=== PATIENT | female | born 1980 | race Caucasian/White ===

== ENCOUNTER 2021-12-29 08:10 | Emergency (ER) | payer OTHER, SELFPAY ==
[2021-12-29 08:19] VITALS: BP 136/83; PULSE 74; RESP 16; TEMP 36.6; O2SAT 98; BMI 35.2
--- NOTE | 2021-12-29 08:40 | ED.BACK ---
HPI - Back Pain/Injury General Chief Complaint: Back Pain/Injury Stated Complaint: Lower back pain Time Seen by Provider: 12/29/21 08:24 Source: patient Mode of arrival: ambulatory Limitations: no limitations History of Present Illness HPI Narrative: 41-year-old female who presents emergency department for evaluation of right lower back pain. 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 She states she was picking the child up out of the car seat approximately 1 week prior when she felt a pop in her right lower back. She states she developed immediate pain in her back and the pain did radiate down her right leg. She states the pain is been constant, sharp and 8/10 at its worst. She states that she does have a numbness that radiates down her right leg to her right foot but denies any weakness of the right leg her foot. She has not had any loss of bowel or bladder control. She states that her pain is worse when she goes from a sitting to standing position worse if she twists her lower back. Patient has been taking Tylenol p.m. and Motrin 800 mg with no relief for pain. She is also use an [id number] lidocaine patch with no relief for pain. Patient states she had a similar back injury 15 years prior that resolved with medications. She denied fever, chills, fatigue, loss of appetite, chest pain, shortness of breath, injection drug use. 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 Past surgical history: Right carpal tunnel release. Social history: She denies tobacco, alcohol and drug use. Social History Social History Advance Directives: No Advance Directives Information Provided: No Physical Exam Vital Signs: Vital Signs: Last Vital Signs Temp 98 F 12/29/21 08:19 Pulse 74 12/29/21 08:19 Resp 16 12/29/21 08:19 BP 136/83 12/29/21 08:19 Pulse Ox 98 12/29/21 08:19 O2 Del Method 12/29/21 08:19 BMI result Body Mass Index 35.2 Const: General: cooperative and no acute distress Orientation/consciousness: oriented to person and oriented to place Limitations: no limitations HEENT: Head: Yes normal to inspection, Yes normocephalic and Yes atraumatic Ears: external ears normal General nose exam: Normal external nose present Face and sinus: Yes normal facial exam Mouth: Normal oral and palatal mucosa present Throat: Yes posterior oropharynx normal Eyes: General: appearance normal, both eyes and all related structures Pupils: Equal, round and reactive pupils present Neck: Neck: Yes normal visual inspection, Yes no lymphadenopathy, Yes trachea midline and Yes supple Chest: Chest palpation & inspection: normal inspection of the chest and normal palpation of entire chest wall Resp: Effort & Inspection: normal respiratory effort and able to speak in complete sentences Auscultation: clear to auscultation bilaterally Cardio: Rate: regular rate Rhythm: regular rhythm Heart sounds: S1 normal heart sound present, S2 normal heart sound present and no murmurs GI: Inspection: Yes normal to inspection Palpation (GI): Soft to palpation, nontender and no guarding Auscultation: normal bowel sounds Back/Spine/Pelvis: Other: Tender right SI joint and lumbar 6 paraspinal muscles on the right, spasm of these muscles, negative straight leg raises bilaterally Skin: General skin exam: no rashes or lesions noted Neuro: General: oriented to person and oriented to place Cranial nerves: Yes CN's II-XII intact bilaterally and Yes Equal, round and reactive pupils present Cognition (Neuro): normal cognition Motor exam (neuro): 5/5 motor strength present throughout Extrem: General: Yes normal to inspection Psych: Appearance: grossly normal Speech and movement: Normal speech and movement present Affect: normal affect Attitude: cooperative Thought process: Normal thought process present Thought content: Normal thought content present Course Course Course Narrative: 41-year-old female who presents emergency department for evaluation of right lower back pain with numbness to the right leg which started 1 week prior after she lifted a baby out of the car seat. Physical examination did reveal right SI joint tenderness with pain with palpation of the right paraspinal muscles in the lumbar sacral area. Her neurologic exam was nonfocal. She is able to stand and walk without any difficulty. She has had no loss of bowel or bladder control. Patient's presentation is consistent with SI joint sprain with spasm of the paraspinal muscles sprain with radiculopathy. Discharge Plan Discharge Clinical Impression: Lumbar radiculopathy Strain of lumbar region Qualifiers: Encounter type: initial encounter Qualified Code(s): S39.012A - Strain of muscle, fascia and tendon of lower back, initial encounter Sprain of sacroiliac joint Qualifiers: Encounter type: initial encounter Qualified Code(s): S33.6XXA - Sprain of sacroiliac joint, initial encounter Patient Disposition: Home, Self-Care Instructions: Lumbar Radiculopathy (ED), Sacroiliitis (ED) Additional Instructions: Your symptoms are consistent with a sprain of the sacroiliac joint and inflammation of the nerves in the lower back causing the numbness in your leg. Take prednisone 20 mg pills, 3 pills once a day for 7 days. While you are taking prednisone, do not take any NSAIDs (Motrin, Advil, ibuprofen, Aleve, naproxen). Take Tylenol (acetaminophen) 500 mg pills, 2 pills every 6 hours as needed for pain. Take Flexeril (cyclobenzaprine) 10 mg pills, 1 pill every 8 hours as needed for pain or muscle spasm. This is a prescription medication. This medication will make you sleepy, therefore do not drive or work while taking this medication. Apply ice for 15 minutes to the area that hurts on your back, then apply a heating a pad on low for 15 minutes. Do this 4-6 times a day to help reduce the pain in your back. Continue with normal activities as tolerated since staying in bed and not moving around will make your pain worse. You can also try over the counter lidocaine patches as directed on the box to help with the pain. Please return to the Emergency Department or see your doctor immediately if your symptoms get worse or if you develop any new symptoms that are concerning you. Follow up with your doctor in 2 day. Please read the other printed discharge instructions on sacroiliitis and lumbar radiculopathy Prescriptions: New cyclobenzaprine 10 mg tablet 10 mg PO TID PRN (Reason: muscle pain or spasm) Qty: 20 0RF prednisone 20 mg tablet 60 mg PO DAILY 7 Days Qty: 21 0RF
== END 2021-12-29 09:06 | disposition home or self-care (01) ==
PROVIDERS: Emergency Provider Emergency Medicine Emergency Medical Services; PCP Internal Medicine
DX: M54.16 Radiculopathy, lumbar region (principal); M54.50 Low back pain, unspecified
CPT/HCPCS: 99283

== ENCOUNTER 2023-06-28 08:53 | Emergency (ER) | payer OTHER, SELFPAY ==
--- NOTE | ~2023-06-28 | XR_ITS ---
EXAMINATION: XR CHEST CLINICAL INFORMATION: Cough with chest discomfort COMPARISON: Chest radiograph 05/18/2009, report only TECHNIQUE: 2 views of the chest were obtained. FINDINGS: No significant abnormality is noted involving the heart, lungs, mediastinum, bony thorax or soft tissues. XR/XR chest 2V IMPRESSION: Unremarkable examination.
[2023-06-28 09:13] VITALS: BP 127/85; PULSE 80; RESP 16; TEMP 36.8; O2SAT 100; BMI 35.8
--- NOTE | 2023-06-28 09:25 | ED_ITS ---
HPI - URI/Sore Throat General Chief Complaint: Upper Respiratory Symptoms Stated Complaint: Cough Chest Discomfort Time Seen by Provider: 06/28/23 09:24 Source: patient, RN notes reviewed and old records reviewed Mode of arrival: ambulatory Limitations: no limitations History of Present Illness HPI Narrative: 43-year-old female with no significant past medical history presents to the ED today for evaluation of cough that began 6 days ago. Admits it has progressively worsened. Denies sputum production. Endorses associated chest discomfort after coughing for a while along with hoarse voice x3 days which has since resolved. Denies known sick contacts however does work at a [employer]. Admits that she has been taking DayQuil over the past few days without relief. Last dose was yesterday. Denies fever, chills, sore throat, ear pain, chest pain, shortness of breath, wheezing, dyspnea, nausea or vomiting, abdominal pain, calf pain/swelling. Denies recent travel or long car rides. Denies history of asthma. Related Data Previous Rx's ?Medication ?Instructions ?Recorded cyclobenzaprine 10 mg tablet 10 mg PO TID PRN muscle pain or 12/29/21 spasm #20 tabs prednisone 20 mg tablet 60 mg (3 x 20 mg) PO DAILY 7 days 12/29/21 #21 tabs azithromycin 250 mg tablet See Rx Instructions PO .COMPLEX #6 06/28/23 (Zithromax Z-Slim) tabs benzonatate 100 mg capsule 100 mg PO BID PRN cough #20 caps 06/28/23 prednisone 20 mg tablet 40 mg (2 x 20 mg) PO DAILY 5 days 06/28/23 #10 tabs Allergies Allergy/AdvReac Type Severity Reaction Status Date / Time No Known Allergies Allergy Verified 06/28/23 09:17 Review of Systems Review of Systems: Constitutional: No fever, chills, fatigue, night sweats, weight changes ENT/Mouth: No ear pain, hearing loss, nasal congestion, sinus pain, rhinorrhea, sore throat Eyes: No eye pain, swelling, redness, vision changes, discharge Cardio: No chest pain, palpitations, TANG, orthopnea, peripheral edema Pulm: No SOB, sputum, wheezing, dyspnea, hemoptysis, +cough GI: No nausea, vomiting, hematemesis, abdominal pain, diarrhea, constipation, hematochezia, melena : No irregular bleeding, dysuria, frequency, urgency, hesitancy, hematuria, flank pain, urinary flow changes, urinary incontinence or retention MSK: No back pain, neck pain, joint pain, myalgias Skin: No lesions, rashes Neuro: No weakness, numbness, paresthesias, LOC, dizziness, headache Psych: No anxiety/panic, depression, SI/HI, AH/VH All other systems reviewed and are negative. [facility] Past Medical History Attestation statement: The following information was validated with the patient. Source: old records reviewed and nursing notes reviewed Social History Social History Advance Directives: No Physical Exam Vital Signs: Vital Signs: Last Vital Signs Temp 98.3 F 06/28/23 09:13 Pulse 80 06/28/23 09:13 Resp 16 06/28/23 09:13 BP 127/85 06/28/23 09:13 Pulse Ox 100 06/28/23 09:13 O2 Del Method Room Air 06/28/23 09:13 BMI result Body Mass Index 35.8 Vital signs stable, afebrile. Not hypoxic or tachycardic. Const: General: cooperative, healthy appearing, comfortable and no acute distress Orientation/consciousness: patient oriented x3 Limitations: no limitations HEENT: Other: + posterior oropharynx without erythema or edema. No tonsillar exudates or peritonsillar masses. Uvula midline. Controlling secretions and speaking in complete sentences. Head: Yes normal to inspection, Yes No palpable skull fracture present, Yes normocephalic and Yes atraumatic Ears: hearing grossly normal bilaterally, external ears normal, TM's normal bilaterally, EAC's normal, mastoids normal and no periauricular adenopathy Eyes: General: appearance normal, both eyes and all related structures Conjunctivae: conjunctivae normal Sclerae: sclerae normal Pupils: Equal, round and reactive pupils present Neck: Neck: Yes normal visual inspection, Yes full ROM and Yes no lymphadenopathy Resp: Effort & Inspection: normal respiratory effort, able to speak in complete sentences and Actively coughing Auscultation: clear to auscultation bilaterally Cardio: Rate: regular rate Rhythm: regular rhythm GI: Inspection: Yes normal to inspection Palpation (GI): Soft to palpation and nontender Skin: General skin exam: no rashes or lesions noted Neuro: General: patient oriented x3 Cranial nerves: Yes Equal, round and reactive pupils present Course Course Course Narrative: 1054-- patient has tested negative for COVID, flu, RSV. Chest x-ray unremarkable. Concern for acute bronchitis. Patient received Tessalon Perles and Decadron in ED today. Will send prednisone, Tessalon Perles and Z-Slim to pharmacy. Patient has remained stable throughout ED visit today. Discussed worrisome signs and symptoms and when to return to the ED. All questions answered at this time. Patient is agreeable with disposition and stable for discharge. Medications Administered Discontinued Medications Generic Name Dose Route Start Last Admin Trade Name Freq PRN Reason Stop Dose Admin Benzonatate 200 mg 06/28/23 09:52 06/28/23 10:28 Benzonatate 100 Mg Capsule PO 06/28/23 09:53 200 mg ONCE ONE Administration Dexamethasone Sodium Phosphate 10 mg 06/28/23 09:55 06/28/23 10:28 Dexamethasone Sod Phosphate 10 Mg/Ml Vial IVPUSH 06/28/23 09:56 10 mg ONCE ONE Administration Medical Decision Making Medical Decision Making [facility] Narrative: 43-year-old female with no significant past medical history presents to the ED today for evaluation of cough that began 6 days ago. Vital signs stable. Afebrile. Not hypoxic or tachycardic. Posterior oropharynx WNL. Lungs are CTA bilaterally. No increased effort of breathing. Actively coughing on exam. No calf tenderness bilaterally. Differential diagnosis includes viral syndrome, bronchitis, laryngitis, pneumonia. Low suspicion for pulmonary embolism, effusion, ACS, arrhythmia. Plan for viral serology, chest x-ray and re-evaluation. Differential Diagnosis Differential Diagnoses: The differential diagnosis associated with the presentation includes As above Admission/Observation Not indicated Lab Data [facility] Lab Attestation statement: I reviewed the patient's lab results. As above Labs: Lab Results 06/28/23 Range/Units 09:47 Influenza Type A (PCR) NEGATIVE (Negative) Influenza Type B (PCR) NEGATIVE (Negative) RSV RNA Qual (PCR) NEGATIVE (Negative) SARS-CoV-2 RNA (RT-PCR) NEGATIVE (Negative) Independent Interpretation I performed an independent interpretation of an: Plain X-Ray Interpretation: Chest x-ray does not reveal infiltrate or consolidation, agree with radiologist's interpretation. Radiology Impression Discussion of test interpretation with radiology: I have reviewed the radiologist's reading. Radiologist Impression: EXAMINATION: XR CHEST CLINICAL INFORMATION: Cough with chest discomfort COMPARISON: Chest radiograph 05/18/2009, report only TECHNIQUE: 2 views of the chest were obtained. FINDINGS: No significant abnormality is noted involving the heart, lungs, mediastinum, bony thorax or soft tissues. XR/XR chest 2V IMPRESSION: Unremarkable examination. External Record Review External record reviewed: Inpatient record Prescription Management I considered prescription management with: Antibiotic (Azithromycin) and Other (Tessalon Perles, prednisone) Social Determinants Patient?s care significantly limited by Social Determinants of Health including: Other Social Determinant of Health Discharge Plan Discharge Clinical Impression: Acute bronchitis Patient Disposition: Home, Self-Care Instructions: Acute Bronchitis (ED), Wheezing (ED) Additional Instructions: You tested negative for COVID, flu, RSV. Your chest x-ray does not show signs of pneumonia. You likely have acute bronchitis which is inflammation/ infection of the airways. Prednisone as a steroid that has been sent to your pharmacy. Take this as direc francie over the next 5 days, beginning tomorrow. Tessalon Perles have been sent to your pharmacy to help with cough. Azithromycin (zpak) is an antibiotic that has been sent to your pharmacy for you to take over the next 5 days. Take as prescribed. Do not miss any doses or stop taking this early as this may cause infection to persist or worsen. Take 2 tablets today and then 1 tablet a day for the next 4 days. Follow-up with PCP as needed. Return with new or worsening symptoms. In the case of an emergency call 911. Prescriptions: New prednisone 20 mg tablet 40 mg PO DAILY 5 Days Qty: 10 0RF benzonatate 100 mg capsule 100 mg PO BID PRN (Reason: cough) Qty: 20 0RF azithromycin [Zithromax Z-Slim] 250 mg tablet See Rx Instructions .ROUTE .COMPLEX Qty: 6 0RF Rx Instructions: For 250 mg dose pack: take 500 mg today (day 1), then 250 mg for 4 days (days 2-5) No Action cyclobenzaprine 10 mg tablet 10 mg PO TID PRN (Reason: muscle pain or spasm) Qty: 20 0RF prednisone 20 mg tablet 60 mg PO DAILY 7 Days Qty: 21 0RF Referrals: Valerie Cota MD [Primary Care Provider] - Stand Alone Forms: Work/School Release Print Language: Panamanian
[2023-06-28] MEDS: dexAMETHasone sod phosphate 10 MG/ML VIAL IVPUSH (10:28)
[2023-06-28] MEDS: Benzonatate 100 MG CAPSULE 200 MG PO (10:28)
--- NOTE | 2023-06-28 10:28 | PC.NURSE ---
pt medicated per order, per request of provider steroids were to be given PO in juice.
[2023-06-28 10:31] LABS: Influenza A PCR NEGATIVE (Negative); Influenza B PCR NEGATIVE (Negative); Resp Syncy Virus RNA Qual PCR NEGATIVE (Negative); SARS COV2 PCR INHOUSE NEGATIVE (Negative)
[2023-06-28 11:11] VITALS: BP 121/82; PULSE 83; RESP 16; TEMP 36.7; O2SAT 100
== END 2023-06-28 11:11 | disposition home or self-care (01) ==
PROVIDERS: Emergency Provider Emergency Medicine; PCP Internal Medicine
DX: J20.9 Acute bronchitis, unspecified (principal)
CPT/HCPCS: 0241U; 71046; 99282; 99283; J1100

== ENCOUNTER 2023-11-17 15:04 | Emergency (ER) | payer OTHER, SELFPAY ==
--- NOTE | ~2023-11-17 | CT_ITS ---
EXAMINATION: CT ABDOMEN AND PELVIS WITHOUT CONTRAST CLINICAL INFORMATION: Left lower quadrant pain and tenderness. COMPARISON: None available. TECHNIQUE: Multidetector volumetric imaging was performed from the superior aspect of the liver through the pubic symphysis. Sagittal and coronal reformatted images were obtained on the technologist's workstation. This CT examination was performed using dose optimization techniques as appropriate, variously including the following: *Automated exposure control *Adjustment of mA and/or kV according to patient size (this includes techniques or standardized protocols for targeted exams where dose is matched to indication/reason for exam; i.e. extremities or head) *Use of iterative reconstruction technique DLP: 792 mGy-cm FINDINGS: LUNG BASES: The visualized lung bases are unremarkable. LIVER, GALLBLADDER, AND BILIARY TREE: The liver is normal in size, shape, and attenuation. No focal hepatic lesion or biliary ductal dilatation is present. The gallbladder is unremarkable with no evidence of radiopaque gallstones, gallbladder wall thickening, or obvious pericholecystic inflammatory changes. PANCREAS: Unremarkable. SPLEEN: Unremarkable. ADRENAL GLANDS: Unremarkable. KIDNEYS AND URETERS: The kidneys are normal in size, shape, and attenuation. No hydronephrosis, hydroureter, or calculi seen. No perinephric stranding. BLADDER: Unremarkable. GASTROINTESTINAL TRACT: The small and large bowel are normal in caliber. There is a moderate volume of stool throughout the colon. There is no pericolonic inflammatory stranding. No free fluid throughout the abdomen. The appendix is unremarkable. ABDOMINAL WALL: No significant hernia is appreciated. LYMPH NODES: No lymphadenopathy. VASCULAR: Unremarkable. PELVIC VISCERA: The uterus is enlarged and lobular. It contains several fibroids. There are bilateral Essure devices. The precise location of the left-sided device is uncertain. Correlation with ultrasound is recommended. OSSEOUS STRUCTURES: Unremarkable. CT/CT abdomen pelvis wo IV con IMPRESSION: No acute intra-abdominal/intrapelvic abnormality. Moderate stool burden The uterus is enlarged and lobular. It contains several fibroids. There are bilateral Essure devices. The precise location of the left-sided device is uncertain. Correlation with ultrasound is recommended. Fleischner guidelines were followed. This critical result was discussed with DEVAN Saleem at 6:59 PM on 11/17/2023 and it was ascertained that the content and urgency of the report was understood at the time of direct communication. Electronically signed by: Caio Carpenter DO 11/17/2023 07:00 PM EDT RP
[2023-11-17 15:07] VITALS: BP 156/77; PULSE 75; RESP 16; TEMP 36.9; O2SAT 98; BMI 35.2
--- NOTE | 2023-11-17 15:07 | ED_ITS ---
HPI - Abdominal Pain General Chief Complaint: Abdominal Pain Stated Complaint: left side abd pain Time Seen by Provider: 11/17/23 17:42 Source: patient Limitations: no limitations History of Present Illness ED Provider: Luz Bryson PA-C HPI narrative: 43-year-old female with history of chronic constipation presents with left lower quadrant discomfort x5 days. Patient states she feels uncomfortable, her pain is minimal, but has been constant. Denies nausea vomiting or diarrhea. Patient states her last bowel movement was 3 days ago, however it was minimal with firm stool. Denies abdominal distention, or inability to pass flatus. Denies dysuria, hematuria, history of kidney stones. Denies new vaginal discharge. Patient does not have a history of ovarian cysts. Related Data Previous Rx's ?Medication ?Instructions ?Recorded cyclobenzaprine 10 mg tablet 10 mg PO TID PRN muscle pain or 12/29/21 spasm #20 tabs prednisone 20 mg tablet 60 mg (3 x 20 mg) PO DAILY 7 days 12/29/21 #21 tabs azithromycin 250 mg tablet See Rx Instructions PO .COMPLEX #6 06/28/23 (Zithromax Z-Slim) tabs benzonatate 100 mg capsule 100 mg PO BID PRN cough #20 caps 06/28/23 prednisone 20 mg tablet 40 mg (2 x 20 mg) PO DAILY 5 days 06/28/23 #10 tabs Allergies Allergy/AdvReac Type Severity Reaction Status Date / Time No Known Allergies Allergy Verified 11/17/23 15:08 Review of Systems Review of Systems Yes all other systems are reviewed and are negative Constitutional: Denies fever(s) Cardiovascular: Denies chest pain Gastrointestinal: Reports constipation and Denies vomiting Genitourinary: Denies dysuria and Denies vaginal discharge [facility] Past Medical History Attestation statement: The following information was validated with the patient. Social History Social History Advance Directives: No Advance Directives Information Provided: Yes Physical Exam ED Vital Signs: Vital Signs - 24 hr 11/17/23 15:07 11/17/23 17:39 Temperature 98.5 F 98.7 F Pulse Rate 75 66 Respiratory Rate 16 16 Blood Pressure 156/77 H 151/83 H Pulse Oximetry 98 99 Oxygen Delivery Method Room Air Room Air BMI result Body Mass Index 35.2 Const Other: Alert well in appearance Orientation/consciousness: patient oriented x3 Resp Other: Nonlabored respiration Cardio Other: Normal peripheral perfusion GI Other: Abdomen is soft, nondistended, nontender no guarding Skin Other: Warm dry no rash Neuro General: patient oriented x3, no focal motor deficits and CN's II-XI intact bilaterally Psych Other: Cooperative Course Course Course Narrative: This is a Rapid Medical Examination (RME) performed by Katlyn Persaud PA-C in triage. Full HPI, ROS, assessment and treatment plan per primary provider in the Main ED. 43 yo female presents to the ER for evaluation of left sided abdominal pain for the last 6 days that has been worsening. No N/V/D or urinary symptoms. Normal BM this morning, was constipated the last couple days. On exam she appears well, ambulates w/ steady gait into triage. she has a soft abd with LLQ tenderness and some guarding, no rebound. no CVA tenderness on the left side. Plan: labs, UA, CT scan abd/pelvis Medical Decision Making Medical Decision Making MDM Narrative: 43-year-old female with history of chronic constipation presents with left lower quadrant discomfort x5 days. Patient states she feels uncomfortable, her pain is minimal, but has been constant. Denies nausea vomiting or diarrhea. Patient states her last bowel movement was 3 days ago, however it was minimal with firm stool. Denies abdominal distention, or inability to pass flatus. Denies dysuria, hematuria, history of kidney stones. Denies new vaginal discharge. Patient does not have a history of ovarian cysts. Problem: Chronic constipation History: Per patient I have considered the following differential diagnoses: Constipation, bowel obstruction, diverticulitis, renal colic, torsion, TOA Plan: Patient has no related symptoms, and no history of cysts, both TOA in torsion less likely. She has also had symptoms for 5 days that have been minimal. She is very well in appearance. Thought about renal colic, the patient has not had preceding flank pain, she has no hematuria no history of stones, and again she is very comfortable in appearance. Urine sample in process. To note screening labs and a CT scan were obtained from E. Her symptoms are likely secondary to constipation, she does not have any associated obstructive symptoms. I have independently reviewed the following tests: Labs: No leukocytosis, not anemic, urine not infected, viral panel obtained unclear why CT abdomen and pelvis:COMPARISON: None available. TECHNIQUE: Multidetector volumetric imaging was performed from the superior aspect of the liver through the pubic symphysis. Sagittal and coronal reformatted images were obtained on the technologist's workstation. This CT examination was performed using dose optimization techniques as appropriate, variously including the following: *Automated exposure control *Adjustment of mA and/or kV according to patient size (this includes techniques or standardized protocols for targeted exams where dose is matched to indication/reason for exam; i.e. extremities or head) *Use of iterative reconstruction technique DLP: 792 mGy-cm FINDINGS: LUNG BASES: The visualized lung bases are unremarkable. LIVER, GALLBLADDER, AND BILIARY TREE: The liver is normal in size, shape, and attenuation. No focal hepatic lesion or biliary ductal dilatation is present. The gallbladder is unremarkable with no evidence of radiopaque gallstones, gallbladder wall thickening, or obvious pericholecystic inflammatory changes. PANCREAS: Unremarkable. SPLEEN: Unremarkable. ADRENAL GLANDS: Unremarkable. KIDNEYS AND URETERS: The kidneys are normal in size, shape, and attenuation. No hydronephrosis, hydroureter, or calculi seen. No perinephric stranding. BLADDER: Unremarkable. GASTROINTESTINAL TRACT: The small and large bowel are normal in caliber. There is a moderate volume of stool throughout the colon. There is no pericolonic inflammatory stranding. No free fluid throughout the abdomen. The appendix is unremarkable. ABDOMINAL WALL: No significant hernia is appreciated. LYMPH NODES: No lymphadenopathy. VASCULAR: Unremarkable. PELVIC VISCERA: The uterus is enlarged and lobular. It contains several fibroids. There are bilateral Essure devices. The precise location of the left-sided device is uncertain. Correlation with ultrasound is recommended. OSSEOUS STRUCTURES: Unremarkable. CT/CT abdomen pelvis wo IV con IMPRESSION: No acute intra-abdominal/intrapelvic abnormality. Moderate stool burden The uterus is enlarged and lobular. It contains several fibroids. There are bilateral Essure devices. The precise location of the left-sided device is uncertain. Correlation with ultrasound is recommended. Fleischner guidelines were followed. This critical result was discussed with DEVAN Saleem at 6:59 PM on 11/17/2023 and it was ascertained that the content and urgency of the report was understood at the time of direct communication. Electronically signed by: Caio Carpenter DO 11/17/2023 07:00 PM EDT Lab Data 11/17/23 15:25 11/17/23 15:25 Labs: Lab Results 11/17/23 11/17/23 Range/Units 15:25 15:29 WBC 7.8 (4.8-10.8) X10*3/uL RBC 4.83 (4.20-5.50) X10*6/uL Hgb 11.1 L (12.0-16.0) g/dl Hct 34.7 L (37.0-47.0) % MCV 71.8 L (80.0-98.0) fL MCH 23.0 L (27.0-33.0) pg MCHC 32.0 (31.0-35.0) g/dl RDW 15.5 (11.0-16.0) % Plt Count 247 (160-400) X10*3/uL MPV 9.6 (9.4-12.3) fL Immature Gran % (Auto) 0.3 (0.0-0.4) % Neut % (Auto) 59.9 (45-73) % Lymph % (Auto) 26.0 (20-40) % [place] % (Auto) 10.9 (2-11) % Eos % (Auto) 2.4 (0-4) % Baso % (Auto) 0.5 (0-2) % Lymph # (Auto) 2.0 (1.2-4.9) X10*3/uL [place] # (Auto) 0.9 (0.1-1.2) X10*3/uL Eos # (Auto) 0.2 (0.0-0.4) X10*3/uL Baso # (Auto) 0.0 (0.0-0.2) X10*3/uL Abs Immat Gran (auto) 0.02 (0.00-0.03) X10*3/uL Absolute Neuts (auto) 4.7 (2.0-8.3) x10*3/uL Absolute Nucleated RBC 0.000 (0.0-0.012) X10*3/uL Nucleated RBC % (auto) 0.0 (0.0-0.2) /100WBC Sodium 139 (135-145) mmol/L Potassium 3.9 (3.3-5.1) mmol/L Chloride 106 (96-108) mmol/L Carbon Dioxide 24 (22-29) mmol/L Anion Gap 13 (12-20) BUN 16 (9-16) mg/dL Creatinine 0.86 (0.5-1.4) mg/dL Estim Creat Clear Calc 94.2 Estimated GFR > 60 Random Glucose 99 (60-115) mg/dL Calcium 9.0 (8.4-10.2) mg/dL Magnesium 2.1 (1.6-2.6) mg/dL Total Bilirubin 0.2 (0.0-1.0) mg/dL Direct Bilirubin < 0.2 (0.0-0.5) mg/dL AST 32 H (5-31) U/L ALT 33 H (0-31) U/L Alkaline Phosphatase 90 (39-117) U/L Total Protein 7.1 (6.5-8.0) g/dL Albumin 3.9 (3.5-5.0) g/dL Beta HCG, Quant < 2 mIU/mL Urine Color Yellow Urine Appearance Clear Urine pH 5.5 (5.0-9.0) Ur Specific [place] 1.025 (1.005-1.025) Urine Protein Negative (Neg-Trace) mg/dL Urine Glucose (UA) Negative (Negative) mg/dL Urine Ketones Negative (Negative) mg/dL Urine Blood Negative (Negative) Urine Nitrite Negative (Negative) Ur Leukocyte Esterase Negative (Negative) Discharge Plan Discharge Clinical Impression: Constipation Patient Disposition: Home, Self-Care Instructions: Constipation (ED) Additional Instructions: All of your labs including the urinalysis were normal. The CT scan revealed a your constipated. See home care instructions. You should use [id number] Colace, this is a stool softener, 1 to 2 times a day. In addition, you can purchase [id number] MiraLax, mix the powder per package instructions with water, you can consume the solution every hour until you begin having multiple bowel movements. Once you have cleared your stool burden, you should stay on the stool softener daily, you may need to use the MiraLax 1 to 2 times a week to help prevent further episodes of constipation. The radiologist could not see the entire Essure on the left side, the recommendation is for you to have a transvaginal ultrasound scheduled by your OBGYN as an outpatient. Prescriptions: No Action cyclobenzaprine 10 mg tablet 10 mg PO TID PRN (Reason: muscle pain or spasm) Qty: 20 0RF prednisone 20 mg tablet 60 mg PO DAILY 7 Days Qty: 21 0RF prednisone 20 mg tablet 40 mg PO DAILY 5 Days Qty: 10 0RF benzonatate 100 mg capsule 100 mg PO BID PRN (Reason: cough) Qty: 20 0RF azithromycin [Zithromax Z-Slim] 250 mg tablet See Rx Instructions .ROUTE .COMPLEX Qty: 6 0RF Rx Instructions: For 250 mg dose pack: take 500 mg today (day 1), then 250 mg for 4 days (days 2-5) Print Language: Greek
[2023-11-17 15:34] LABS: MANUAL DIFF FLAG NO
[2023-11-17 15:38] LABS: Basophils Percent Auto 0.5 % (0-2); Eosinophils Absolute Auto 0.2 X10*3/uL (0.0-0.4); Eosinophils Percent Auto 2.4 % (0-4); Hematocrit 34.7 % (37.0-47.0); Hemoglobin 11.1 g/dl (12.0-16.0); Imm Gran Abs Auto 0.02 X10*3/uL (0.00-0.03); Imm Gran Pct Auto 0.3 % (0.0-0.4); Mean Corpuscular Volume 71.8 fL (80.0-98.0); Mean Platelet Volume 9.6 fL (9.4-12.3); Monocytes Absolute Auto 0.9 X10*3/uL (0.1-1.2); Monocytes Percent Auto 10.9 % (2-11); Neutrophils Absolute Auto 4.7 x10*3/uL (2.0-8.3); Neutrophils Percent Auto 59.9 % (45-73); Platelet Count 247 X10*3/uL (160-400); Red Blood Count 4.83 X10*6/uL (4.20-5.50); Red Cell Distribution Width 15.5 % (11.0-16.0); White Blood Count 7.8 X10*3/uL (4.8-10.8)
[2023-11-17 15:41] LABS: Appearance Urine Clear; Color Urine Yellow; Glucose Urine UA Negative (Negative); Leukocyte Esterase Urine Negative (Negative); Nitrite Urine Negative (Negative); PH 5.5 (5.0-9.0); Specific Gravity - Urine 1.025 (1.005-1.025); Urine Blood Negative (Negative); Urine Ketones Negative (Negative); Urine Protein Negative (Neg-Trace)
[2023-11-17 15:57] LABS: Alanine Aminotransferase 33 U/L (0-31); Albumin Level 3.9 g/dL (3.5-5.0); Alkaline Phosphatase 90 U/L (39-117); Anion Gap 13 (12-20); Aspartate Amino Transferase 32 U/L (5-31); Bilirubin Direct < 0.2 mg/dL (0.0-0.5); Bilirubin Total 0.2 mg/dL (0.0-1.0); Blood Urea Nitrogen 16 mg/dL (9-16); Carbon Dioxide 24 mmol/L (22-29); Chloride 106 mmol/L (96-108); Creatinine Clr Calc Pharmacy 94.2; Estimated Glomerular Filt Rate > 60; Glucose Random 99 mg/dL (60-115); Magnesium 2.1 mg/dL (1.6-2.6); Potassium 3.9 mmol/L (3.3-5.1); Sodium 139 mmol/L (135-145); Total Protein 7.1 g/dL (6.5-8.0)
[2023-11-17 16:01] LABS: HCG Quantitative < 2 mIU/mL
[2023-11-17 17:39] VITALS: BP 151/83; PULSE 66; RESP 16; TEMP 37.1; O2SAT 99
[2023-11-17 20:13] VITALS: BP 152/81; PULSE 64; RESP 16; TEMP 36.8; O2SAT 99
== END 2023-11-17 20:16 | disposition home or self-care (01) ==
PROVIDERS: Physician Assistant; Emergency Provider Emergency Medicine; PCP Internal Medicine
DX: K59.00 Constipation, unspecified (principal); R10.32 Left lower quadrant pain
CPT/HCPCS: 36415; 74176; 80048; 80076; 81003; 83735; 84702; 85025; 99283; 99284

== ENCOUNTER 2023-11-28 13:22 | Emergency (ER) | payer OTHER, SELFPAY ==
[2023-11-28 13:27] VITALS: BP 147/87; PULSE 101; RESP 20; TEMP 37.1; O2SAT 98; BMI 35.2
--- NOTE | 2023-11-28 13:30 | ED.URI ---
HPI - URI/Sore Throat General Chief Complaint: Recheck/Abnormal Lab/Rx Stated Complaint: COVID Symptoms Time Seen by Provider: 11/28/23 13:29 Source: patient Mode of arrival: ambulatory Limitations: no limitations History of Present Illness ED Provider: tesfaye schwab pa-c HPI Narrative: 43 year old female with no significant pmhx presents to the ED today requesting note for work. She reports nasal congestion and fatigue yesterday, prompting her to test herself for COVID at home. She reports testing positive this morning. 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 Denies fever, chills, sore throat, chest pain, SOB, wheezing, rashes. Related Data Previous Rx's ?Medication ?Instructions ?Recorded cyclobenzaprine 10 mg tablet 10 mg PO TID PRN muscle pain or 12/29/21 spasm #20 tabs prednisone 20 mg tablet 60 mg (3 x 20 mg) PO DAILY 7 days 12/29/21 #21 tabs azithromycin 250 mg tablet See Rx Instructions PO .COMPLEX #6 06/28/23 (Zithromax Z-Slim) tabs benzonatate 100 mg capsule 100 mg PO BID PRN cough #20 caps 06/28/23 prednisone 20 mg tablet 40 mg (2 x 20 mg) PO DAILY 5 days 06/28/23 #10 tabs Allergies Allergy/AdvReac Type Severity Reaction Status Date / Time No Known Allergies Allergy Verified 11/28/23 13:29 Review of Systems Review of Systems: Constitutional: No fever, chills, fatigue, night sweats, weight changes ENT/Mouth: No ear pain, hearing loss, sinus pain, rhinorrhea, +congestion Eyes: No eye pain, swelling, redness, vision changes, discharge Cardio: No chest pain, palpitations, TANG, orthopnea, peripheral edema Pulm: No SOB, cough, sputum, wheezing, dyspnea, hemoptysis GI: No nausea, vomiting, hematemesis, abdominal pain, diarrhea, constipation, hematochezia, melena : No irregular bleeding, dysuria, frequency, urgency, hesitancy, hematuria, flank pain, urinary flow changes, urinary incontinence or retention MSK: No back pain, neck pain, joint pain, myalgias Skin: No lesions, rashes Neuro: No weakness, numbness, paresthesias, LOC, dizziness, headache Psych: No anxiety/panic, depression, SI/HI, AH/VH All other systems reviewed and are negative. [facility] Past Medical History Attestation statement: The following information was validated with the patient. Source: old records reviewed and nursing notes reviewed Social History Social History Advance Directives: No Advance Directives Information Provided: No Do you have a plan to hurt others: No Plan Physical Exam Vital Signs: Vital Signs: Last Vital Signs Temp 98.7 F 11/28/23 13:40 Pulse 101 H 11/28/23 13:40 Resp 20 11/28/23 13:40 BP 147/87 H 11/28/23 13:40 Pulse Ox 98 11/28/23 13:40 O2 Del Method Room Air 11/28/23 13:40 BMI result Body Mass Index 35.2 Patient is slightly tachycardic to 101, vitals otherwise WNL General: Well appearing, in no acute distress. Skin: Warm, dry, intact. No rashes or lesions. Head: Normocephalic, atraumatic. EENT: Hearing is intact b/l. Conjunctiva clear. Sclera is anicteric. PERRLA. EOM intact. Moist mucous membranes.? Neck: Supple without LAD Cardiac: Chest wall symmetric. RRR Lungs: Normal respiratory effort without accessory muscle use. CTA bilaterally Abdomen: Soft, non-tender, non-distended. No rebound tenderness or guarding. Back: No midline spinous or paraspinal tenderness. No step off deformity. Ext: Upper and lower extremities atraumatic, without tenderness, deformity, swelling or erythema. Full ROM throughout. No calf tenderness. Neuro: AOx3. Normal speech. Sensation intact to light touch. NV intact distally. Ambulating with steady gait. Psych: Appropriate mood and affect. Responds appropriately to questions. Course Course Course Narrative: 0620 -- Patient tested positive for COVID via home test. I do not feel that re-testing is necessary at this time. Educated on symptomatic treatment. Patient has remained stable throughout ED visit today. Discussed worrisome signs and symptoms and when to return to the ED. All questions answered at this time. Patient is agreeable with disposition and stable for discharge. Medical Decision Making Medical Decision Making [facility] Narrative: 43 year old female with no significant pmhx presents to the ED today requesting note for work. Slightly tachycardic to 101. Vitals otherwise wnl. Afebrile. She is nontoxic appearing and in NAD. Skin w/d/i, no rahes. Lungs CTA b/l. No calf tenderness. Differential diagnosis includes COVID. Presentation not consistent with pneumonia, [employer], retropharyngeal abscess, epiglottitis, peritonsillar abscess, PE. Plan for discharge. Differential Diagnosis Differential Diagnoses: The differential diagnosis associated with the presentation includes As above Admission/Observation Not indicated External Record Review External record reviewed: Inpatient record Social Determinants Patient?s care significantly limited by Social Determinants of Health including: Other Social Determinant of Health Critical Care Time Critical Care Time Critical Care Time: No Discharge Plan Discharge Clinical Impression: COVID-19 Patient Disposition: Home, Self-Care Instructions: COVID-19 (Coronavirus Disease 2019) (ED) Additional Instructions: You tested positive for covid 19 at home. Take Ibuprofen or Tylenol as needed for fevers or body aches.? Quarantine for 5 days and ensure you wear a mask. After 5 days you should wear a mask for 5 days after that.? Practice social distancing and good hand hygiene. Drink plenty of fluids. Follow-up with your primary care provider this week. Return to the emergency department with new or worsening symptoms. In case of emergency call 911 You can purchase a pulse oximeter from your local pharmacy or grocery store, and monitor your oxygen saturation if it goes below 94% you should return to the emergency department for further evaluation. Prescriptions: No Action cyclobenzaprine 10 mg tablet 10 mg PO TID PRN (Reason: muscle pain or spasm) Qty: 20 0RF prednisone 20 mg tablet 60 mg PO DAILY 7 Days Qty: 21 0RF prednisone 20 mg tablet 40 mg PO DAILY 5 Days Qty: 10 0RF benzonatate 100 mg capsule 100 mg PO BID PRN (Reason: cough) Qty: 20 0RF azithromycin [Zithromax Z-Slim] 250 mg tablet See Rx Instructions .ROUTE .COMPLEX Qty: 6 0RF Rx Instructions: For 250 mg dose pack: take 500 mg today (day 1), then 250 mg for 4 days (days 2-5) Referrals: Valerie Cota MD [Primary Care Provider] - Stand Alone Forms: Work/School Release Interventions: ED Discharge Assessment Last Done: 11/28/23 13:40 Discharge Date/Time: 11/28/23 13:41 Print Language: Thai
[2023-11-28 13:40] VITALS: BP 147/87; PULSE 101; RESP 20; TEMP 37.1; O2SAT 98
== END 2023-11-28 13:41 | disposition home or self-care (01) ==
PROVIDERS: Emergency Provider Emergency Medicine; PCP Internal Medicine
DX: U07.1 COVID-19 (principal)
CPT/HCPCS: 99282